=== PATIENT | male | born 1960 | race Caucasian/White ===

== ENCOUNTER 2017-09-25 12:41 | Emergency (ER) | payer BC ==
[~2017-09-25] VITALS: Ht 188 cm; Wt 110.0 kg
[~2017-09-25 12:41] MED LIST: AMLODIPINE10 MG PO; AMLODIPINE5 MG OR; AUGMENTIN500TAB PO; BACTRIM DS1 TAB PO; CIPROFLOXACN0.3 % OP; DOXYCYCL HYC100 MG OR; DOXYCYCL HYC100 MG PO; LEVETIRACETAM500 M1 PO; LOSARTAN/HCT1 TA1 PO; METHOCARBAM750 MG PO; METOPROLOL SUCC25 MG PO; MINOCYCLINE100 MG PO; MUPIROCIN2 % EX; NAPROSYN500 MG PO; PERCOCET 5/325M1 TAB PO; ROCEPHIN 1 GM1 GM IM; SMZ/TMP DS1 TAB PO
[2017-09-25 14:23] LABS: IMMATURE GRANULOCYTES 1.2 % (0.0-1.0); MEAN CORPUSCULAR HGB 29.1 pG CALC (26.0-32.0); MEAN CORPUSCULAR HGB CONC 35.1 g/L CALC (32.0-36.0); NEUT# 19.28 thou/uL (1.82-7.42); RED BLOOD COUNT 5.36 mill/uL (4.70-6.10); RED CELL DISTRI WIDTH 12.7 % (11.5-15.5)
[2017-09-25 14:25] LABS: HEMATOCRIT 44.5 % (39.0-50.0); HEMOGLOBIN 15.6 g/dl (14.0-18.0)
[2017-09-25 14:43] LABS: C-REACTIVE PROTEIN 4.2 mg/dL (0-0.9); CREATININE 1.8 mg/dL (0.7-1.3); POTASSIUM 3.7 mmol/l (3.5-5.1)
[2017-09-25] MEDS ORDERED: DOXYCYCL HYC100 MG PO (16:03)
[2017-09-25 16:09] VITALS: BP 149/86
== END 2017-09-25 16:09 | disposition home or self-care (01) | DRG 603 ==
LOC: ED 12:41 → ED-I 15:18 → ED 16:09
PROVIDERS: Family Medicine
DX: L03.115 Cellulitis of right lower limb (principal); I10 Essential (primary) hypertension

== ENCOUNTER 2017-09-26 10:33 | Inpatient (IN) | payer BC ==
[~2017-09-26] VITALS: Ht 188 cm; Wt 110.0 kg
--- NOTE | 2017-09-26 10:46 | NUR ---
PATIENT AMBULATED TO ROOM WITH STEADY GAIT AND PHYSICIAN NOTIFIED OF PATIENT STATUS
--- NOTE | 2017-09-26 11:15 | NUR ---
MD NOTIFIED OF HIGH BP, NO ORDERS RECEIVED AT THIS TIME. WILL CONTINUE TO MONITOR CLOSELY.
--- NOTE | 2017-09-26 11:35 | NUR ---
MD AWARE OF REPORTED REACTION TO VANCOMYCIN. PER DR FALLNO IN CONJUNCTION WITH PHARMACY, ORDERED TO GIVE BENEDRYL IV PRIOR TO ADMIN AND INFUSE OVER 3 HOURS INSTEAD OF NORMAL 2 HOURS. PT INFORMED OF PLAN OF CARE AND VERBALIZES UNDERSTANDING.
[2017-09-26 11:56] LABS: HEMATOCRIT 44.2 % (39.0-50.0); HEMOGLOBIN 15.3 g/dl (14.0-18.0); IMMATURE GRANULOCYTES 0.7 % (0.0-1.0); MEAN CELL VOLUME 83.2 fL CALC (80.0-100.0); MEAN CORPUSCULAR HGB 28.8 pG CALC (26.0-32.0); MEAN CORPUSCULAR HGB CONC 34.6 g/L CALC (32.0-36.0); NEUT# 10.14 thou/uL (1.82-7.42); RED BLOOD COUNT 5.31 mill/uL (4.70-6.10); RED CELL DISTRI WIDTH 12.9 % (11.5-15.5)
--- NOTE | 2017-09-26 12:16 | NUR ---
PT PREMEDICATED WITH BENEDRYL. IV VANCOMYCIN INITIATED. PT EDUCATED TO CALL OUT IF HE STARTS TO DEVELOP ANY SOB, ITCHING, OR CHEST PAIN. PT VERBALIZES UNDERSTANDING. CALL LIGHT IN REACH.
[2017-09-26 12:27] LABS: BILIRUBIN, TOTAL 1.1 mg/dL (0.0-1.4); CREATININE 1.5 mg/dL (0.7-1.3)
[2017-09-26 12:30] LABS: TOTAL PROTEIN 7.4 g/dL (6.3-8.2)
[2017-09-26 12:39] LABS: C-REACTIVE PROTEIN 18.8 mg/dL (0-0.9)
--- NOTE | 2017-09-26 12:43 | NUR ---
PT RESTING ON STRETCHER, DENIES COMPLAINTS AT THIS TIME.
--- NOTE | 2017-09-26 13:40 | NUR ---
PT RETURN FROM U/S IN STABLE CONDITION VIA STRETCER. IV VANCO RESTARTED. PT DENIES COMPLAINTS, CALL LIGHT IN REACH. PT ENCOURAGED TO CALL FOR ASSSIST.
--- NOTE | 2017-09-26 13:42 | NUR ---
MD NOTIFIED OF CONTINUED HIGH BLOOD PRESSURE, ORDERS RECEIVED FOR MED.
--- NOTE | 2017-09-26 14:00 | NUR ---
DR FALLON NOTIFIED OF COMPLETED RESULTS. WAITING ON ORDERS FOR ADMISSION/DISCHARGE.
--- NOTE | 2017-09-26 15:46 | NUR ---
REPORT PROVIDED TO VINNIE TAYLOR.
--- NOTE | 2017-09-26 15:47 | NUR ---
Transfer Information Transferred To: [facility] 262 Report Given to: HELENE TAYLOR Transported by: [facility] [employer] Other Transported with: X Nurse Transporter Patent [employer] X [employer] Marketing Manager
--- NOTE | 2017-09-26 15:52 | NUR ---
PT ARRIVED TO FLOOR VIA STRETCHER ACCOMPANIED BY HELENE MENDEZ;PT AMBULATED TO STANDING SCALE AND BEDSIDE WITH A STEADY GAIT;WT AND VS OBTAINED BY BLAISE LIVINGSTON;PT ORIENTED TO ROOM AND CALL LIGHT SYSTEM;PT REPORTS CELLULITIS TO RLE,PT CAME TO ER ON 09/25/17 AND WAS D/C WITH PO DOXY;PT RETURNED BACK TO ER TODAY BECAUSE CELLUILITS BECAME WORSE;PT REPORTS PAIN 6/10 ON THE PAIN SCALE BUT DENIES THE NEEDS FOR PAIN MEDICATION;PAIN SCALE AND REPORTING EDUCATED;RESPIRATIONS EVEN AND UNLABORED ON RA,CLEAR/DIMINISHED LUNG SOUNDS NOTED;ABDOMEN DISTENDED/SOFT ON PALPATION AND ACTIVE IN ALL 4 QUADRANTS,LAST BM 09/26/17;STRONG PEDAL PULSES;CELLULITIS NOTED TO RLE,WARM AND PAINFUL TO TOUCH;SITE PREVIOUSLY MARKED WITH SKIN SENSITIVE MARKED,PHOTOGRAPH OBTAINED;#22G TO LAC INFUSING VANCO WITH EASE,SITE APPEARS HEALTHY;TELE MONITOR IN PLACE;PT DENIES ANY ADDITONAL NEEDS AT THIS TIME AND IS ENCOURAGED TO CALL FOR ASSISTANCE IF NEEDED;CALL LIGHT IN REACH;WILL CONTINUE TO MONITOR
[2017-09-26 16:00] VITALS: BP 123/79
--- NOTE | 2017-09-26 19:00 | NUR ---
BEDSIDE REPORT RECEIVED FROM VINNIE CHAVEZ. PT SITTING UP IN BED WITH FAMILY AT BEDSIDE; ALERT AND ORIENTED. DENIES PAIN CURRENTLY. RESPIRATIONS EVEN AND UNLABORED ON ROOM AIR. PLAN OF CARE REVIEWED. PT ENCOURAGED TO VERBALIZE CONCERNS. STATES UNDERSTANDING. SAFETY MEASURES IN PLACE. CALL LIGHT WITHIN REACH.
[2017-09-26 19:45] VITALS: BP 132/81
--- NOTE | 2017-09-26 22:55 | NUR ---
RLE REMAINS REDDENED AND WARM TO TOUCH; DOES NOT LOOK WORSE COMPARED TO PHOTOS AND MARKING. PT ALSO HAS REDNESS TO RIGHT GROIN WHICH HE STATES FEELS WARM; PHOTO TAKEN AND MARKED AT THIS TIME. TEMPERATURE 100.3; WILL CONTINUE TO MONITOR. ABT INFUSED WITHOUT DIFFICUTLY. SPOKE WITH DAUGHTER, LORAINE, TWICE; SHE VERBALIZES CONCERNS ABOUT "SEVERE NEW ONSET MEMORY LOSS" OF WHICH THE PT DENIES. DAUGHTER WANTS TO BE PRESENT WHEN MD ROUNDS IN THE AM. WILL PASS ON TO DAY SHIFT. ULTRAM GIVEN FOR LOWER BACK PAIN WITH GOOD EFFECT. NO OTHER REQUESTS AT THIS TIME. SAFETY MEASURES IN PLACE. CALL LIGHT WITHIN REACH.
[2017-09-26 23:42] VITALS: BP 124/77
--- NOTE | 2017-09-27 01:15 | NUR ---
PT ASLEEP AT THIS TIME WITH NO SIGNS OF DISTRESS; AWAKENS TO VERBAL STIMULI. DENIES PAIN CURRENTLY. RESPIRATIONS EVEN AND UNLABORED ON ROOM AIR. ABT INFUSED WITHOUT DIFFICULTY; IV SITE APPEARS HEALTHY. NO REQUESTS OR CONCERNS AT THIS TIME. SAFETY MEASURES IN PLACE. CALL LIGHT WITHIN REACH.
--- NOTE | 2017-09-27 03:57 | NUR ---
PT ASLEEP AT THIS TIME WITH NO SIGNS OF DISTRESS. RESPIRATIONS EVEN AND UNLABORED ON ROOM AIR. NO ACUTE CHANGES IN CONDITION THROUGHOUT THE NIGHT. SAFETY MEASURES IN PLACE. CALL LIGHT WITHIN REACH.
[2017-09-27 04:12] VITALS: BP 124/78
[2017-09-27 05:58] LABS: HEMATOCRIT 39.8 % (39.0-50.0); HEMOGLOBIN 13.5 g/dl (14.0-18.0); IMMATURE GRANULOCYTES 0.6 % (0.0-1.0); MEAN CELL VOLUME 85.4 fL CALC (80.0-100.0); MEAN CORPUSCULAR HGB CONC 33.9 g/L CALC (32.0-36.0); NEUT# 5.35 thou/uL (1.82-7.42); RED BLOOD COUNT 4.66 mill/uL (4.70-6.10); RED CELL DISTRI WIDTH 13.2 % (11.5-15.5)
[2017-09-27 06:14] LABS: ANION GAP 12 (6-22 (CALC)); BUN 20 mg/dL (9-20); BUN/CREATININE RATIO 14 (12-20 (CALC)); CALCULATED LDLCHOLESTEROL 91 mg/dL (62-129 (CALC)); CARBON DIOXIDE 25 mmol/l (22-30); CHLORIDE 105 mmol/l (95-108); CHOLESTEROL HDL RATIO 3.7 (<4.4 (CALC)); CREATININE 1.4 mg/dL (0.7-1.3); GFR 52 ML/MIN (>=60 (CALC)); GFR FOR AFR.AMER. > 60 ML/MIN (>=60 (CALC)); HDL CHOLESTEROL 46 mg/dL (>=40); POTASSIUM 4.4 mmol/l (3.5-5.1); SODIUM 137 mmol/l (137-146); TOTAL CHOLESTEROL 171 mg/dl (0-199); TOTAL TRIGLYCERIDES 172 mg/dl (30-149); VLDL CHOLESTROL 34 mg/dl (8-62 (CALC))
--- NOTE | 2017-09-27 07:39 | NUR ---
S: AGUSTIN SUN is a 57 M who presents with CELLULITIS OF RIGHT LEG. He has a history of CELLULITIS AND HYPERTENSION. All medications in patient's chart were reviewed. O: VS: BP 124/78, P 74, RR 20,T 99.6 W 109 kg, HT 74 in, Scr= 1.4 ,CrCl= 67 ml/min (IBW) PATINETS KIDNEY FUNCTION IS IMPROVING, SCR WAS 1.8 ON 09/25 WE WILL MONITOR AND ADJUST DOSE NEEDED. A: Blood culture <is pending> which is sensitive to <N/A>. Urine culture <is pending> which is sensitive to <N/A>. P: Patient is on VANCOMYCIN 1000MG IV Q12H AND ZOSYN 2.25 Q6H . Vancomycin ordered for pharmacy to dose. Start Vancomycin 1000 MG IV Q12H. Vancomycin trough is drawn before the 4th dose on 09/28/17 @1930. Vancomycin goal trough is between <10-15 mcg/ml>. Pharmacy will follow and or advise on antibiotics use as needed.
[2017-09-27 07:57] VITALS: BP 145/92
--- NOTE | 2017-09-27 07:57 | NUR ---
Pt sitting up in chair eating breakfast. Alert and oriented. Assessment completed. No resp. distress noted. No complaints voiced. Saline lock in left AC free from redness or edema. Right lower leg noted with redness, leg marked with marker, no further spreading noted on left. Will continue to monitor. Call light within reach.
--- NOTE | 2017-09-27 09:00 | NUR ---
Daughter here to visit patient. Has many questions regarding his condition and mentation. She is concerned he is forgetting, this change has only been since this illness. Instructed daughter we will keep an eye on his orientation. Could possible be from this disease process. Dr. Yoon spoke with patient and daughter regarding plan of care.
--- NOTE | 2017-09-27 12:00 | NUR ---
PT CONTINUES TO REST QUIETLY IN BED. NO RESP. DISTRESS NOTED. NO CHANGE IN ASSESSMENT. FAMILY INTO VISIT. NO COMPLAINTS OFFERED. WILL CONTINUE TO MONITOR. CALL LIGHT WITHIN REACH.
[2017-09-27 12:02] VITALS: BP 142/86
[2017-09-27 12:47] LABS: URINE BILIRUBIN - DIPSTICK NEGATIVE (NEGATIVE); URINE BLOOD DIPSTICK NEGATIVE (NEGATIVE); URINE COLOR YELLOW; URINE GLUCOSE - DIPSTICK NEGATIVE (NEGATIVE); URINE KETONE NEGATIVE (NEGATIVE); URINE LEUK ESTERASE NEGATIVE (NEGATIVE); URINE NITRITE - DIPSTICK NEGATIVE (Negative); URINE PH 5.5 (4.5-8.0); URINE PROTEIN - DIPSTICK TRACE mg/dL (NEG-TRACE); URINE SPECIFIC GRAVITY >=1.030
[2017-09-27 12:50] LABS: URINE CLARITY CLEAR
[2017-09-27 15:55] VITALS: BP 142/89
--- NOTE | 2017-09-27 16:00 | NUR ---
PT CONTINUES TO REST QUIETLY IN BED. NO RESP. DISTRESS NOTED. NO COMPLAINTS VOICED. NO CHANGE IN ASSESSMENT. WILL CONTINUE TO MONITOR. CALL LIGHT WITHIN REACH.
--- NOTE | 2017-09-27 20:00 | NUR ---
BEDSIDE REPORT RECEIVED FROM HELENE OTERO. PT SITTING UP IN CHAIR; ALERT AND OREINTED. DENIES PAIN CURRENTLY, BUT STATES THAT HE WANTS SOMETHING AT HS FOR MILD LOWER BACK PAIN. RESPIRATIONS EVEN AND UNLABORED ON ROOM AIR. TELE ON. PLAN OF CARE REVIEWED. PT ENCOURAGED TO VERBALIZE CONCERNS. STATES UNDERSTANDING. SAFETY MEASURES IN PLACE. CALL LIGHT WITHIN REACH.
[2017-09-27 20:15] VITALS: BP 181/109
[2017-09-27 21:08] VITALS: BP 157/96
--- NOTE | 2017-09-28 00:21 | NUR ---
PT INDEPDENDENT IN ROOM. AT HS, BLOOD PRESSURE WAS ELEVATED, BUT DECREASED ON ITS OWN. ULTRAM GIVEN AND PT DENIES ANXIETY. REDNESS TO RLE APPEARS IMPROVED. VANCOMYCIN INFUSED WITHOUT DIFFICULTY AND NO ADVERSE REACTIONS NOTED. IV SITE APPEARS HEALTHY. PT HAS NO REQUESTS OR CONCERNS AT THIS TIME. SAFTETY MEASURES IN PLACE. CALL LIGHT WITHIN REACH.
[2017-09-28 00:35] VITALS: BP 124/78
[2017-09-28 04:25] VITALS: BP 139/89
--- NOTE | 2017-09-28 05:52 | NUR ---
PT ASLEEP AT THIS TIME WITH NO SIGNS OF DISTRESS. RESPIRATIONS EVEN AND UNLABORED ON ROOM AIR. USES CALL LIGHT PRN FOR ASSISTANCE. NO ACUTE CHANGES IN CONDITION THROUGHOUT THE NIGHT. SAFETY MEASURES IN PLACE. CALL LIGHT WITHIN REACH.
[2017-09-28 06:10] LABS: HEMATOCRIT 39.1 % (39.0-50.0); HEMOGLOBIN 13.1 g/dl (14.0-18.0); IMMATURE GRANULOCYTES 1.2 % (0.0-1.0); MEAN CELL VOLUME 85.9 fL CALC (80.0-100.0); MEAN CORPUSCULAR HGB 28.8 pG CALC (26.0-32.0); MEAN CORPUSCULAR HGB CONC 33.5 g/L CALC (32.0-36.0); NEUT# 2.63 thou/uL (1.82-7.42); RED BLOOD COUNT 4.55 mill/uL (4.70-6.10)
[2017-09-28 06:22] LABS: ANION GAP 11 (6-22 (CALC)); BUN 18 mg/dL (9-20); BUN/CREATININE RATIO 15 (12-20 (CALC)); CARBON DIOXIDE 25 mmol/l (22-30); CHLORIDE 106 mmol/l (95-108); CREATININE 1.3 mg/dL (0.7-1.3); GFR 57 ML/MIN (>=60 (CALC)); GFR FOR AFR.AMER. > 60 ML/MIN (>=60 (CALC)); POTASSIUM 4.4 mmol/l (3.5-5.1); SODIUM 138 mmol/l (137-146)
--- NOTE | 2017-09-28 09:05 | NUR ---
PT SITTING UP IN CHAIR. NO RESP. DISTRESS NOTED. ASSESSMENT COMPLETED. SALINE LOCK INTACT IN LEFT AC. REDNESS DECREASED ON RIGHT LOWER LEG NOTED. PT DENIES PAIN. WILL CONTINUE TO MONITOR. CALL LIGHT WITHIN REACH.
[2017-09-28 11:25] VITALS: BP 175/103
--- NOTE | 2017-09-28 12:00 | NUR ---
PT RESTING QUIETLY IN BED. NO RESP. DISTRESS NOTED. NO COMPLAINTS VOICED. DAUGHTER HAS SPENT MOST OF THE MORNING WITH HIM. NO CHANGE ASSSESSMENT. WILL CONTINUE TO MONITOR. CALL LIGHT WITHIN REACH.
[2017-09-28 16:00] VITALS: BP 148/96
--- NOTE | 2017-09-28 16:00 | NUR ---
PT SITTING UP IN CHAIR AT BEDSIDE. NO RESP. DISTRESS NOTED. NO COMPLAINTS VOICED AT THIS TIME. NO CHANGE IN ASSESSMENT. WILL CONTINUE TO MONITOR. CALL LIGHT WITHIN REACH.
--- NOTE | 2017-09-28 19:20 | NUR ---
PATIENT RESTING IN BED WITH FAMILY AT THE BEDSIDE. RESP EVEN AND UNLABORED. NO S/S OF DISTRESS NOTED. PLAN OF CARE DISCUSSED, FALL PRECAUTIONS IN PLACE, AND INFORMED PATIENT TO CALL WITH ANY QUESTION OR CONCERNS.
[2017-09-28 19:31] VITALS: BP 191/118
--- NOTE | 2017-09-28 20:11 | NUR ---
BP 191/118 AND HR 65. APRESOLINE 10MG GIVEN.
[2017-09-28 20:50] VITALS: BP 168/102
[2017-09-29] VITALS (8 sets, daily range): BP systolic 118–190; BP diastolic 77–118
--- NOTE | 2017-09-29 00:19 | NUR ---
PATIENT RESTING WITH EYES CLOSED. RESP EVEN AND UNLABORED. NO S/S OF DISTRESS NOTED. WILL CONTIUNE TO COLT.
--- NOTE | 2017-09-29 06:39 | NUR ---
PATIENT HAS C/O OF A HEACHE THIS MORNING, WILL MEDICATED PER MD ORDERS FOR PAIN. RESP EVEN AND UNLABORED. NO S/S OF DISTRESS NOTED.
--- NOTE | 2017-09-29 08:24 | NUR ---
PT SITTING UP IN RECLINER CHAIR. IV ABT INFUSING AT THIS TIME. B/P 190/118. POC DISCUSSED WITH PT. PT VERBALIZES UNDERSTANDING. ASSESSMENT COMPLETED. TELE MONITOR IN PLACE. WILL CONTINUE TO MONITOR. CALL LIGHT IN REACH.
--- NOTE | 2017-09-29 13:30 | NUR ---
B/P AT 1234 168/101. HYDRALIZINE IV GIVEN AND B/P 138/90 AT THIS TIME. PT C/O SAGE AND WAS PREVIOSULY MEDICATED FOR. PT STATES SAGE HAS IMPROVED. WILL COTINUE TO MONITOR. CALL LIGHT IN REACH.
--- NOTE | 2017-09-29 14:28 | NUR ---
S: AGUSTIN SUN is a 57 M who presents with <CELLULITIS>. He has a history of <CELLULITIS AND HTN>. All medications in patient's chart were reviewed. O: VS: BP <168/101>, P<68>, RR<22>,T<96.7> W <110 kg>, HT<110 KG>, Scr=<1.3>,CrCl= <67 ml/min> A: Blood culture <show NO GROWTH AFTER 48 HOURS> which is sensitive to <N/A>. P: Patient is on <ZOSYN AND VANCOMCIN>. Vancomycin ordered for pharmacy to dose. CONTINUE Vancomycin <1000 MG> IV Q<12>H. NEXT Vancomycin trough is drawn before the dose on <09/15/16 @1930>. Vancomycin goal trough is between <10-15 mcg/ml>. Pharmacy will follow and or advise on antibiotics use as needed.
--- NOTE | 2017-09-29 17:00 | NUR ---
PT REQUESTING SODA TO HELP WITH SAGE. PT STATES HE HAS HAD NO CAFFEINE SINCE ADMISSION. SODA GIVEN PER PT REQUEST. VSS. WILL CONTINUE TO MONITOR. CALL LIGHT IN REACH.
--- NOTE | 2017-09-29 20:00 | NUR ---
BEDSIDE REPORT RECEIVED FROM VINNIE GRIFFIN. PT SITTING UP IN CHAIR WATCHING TV; ALERT AND ORIENTED. C/O HEADAHCE 09/24. RESPIRATIONS EVEN AND UNLABORED ON ROOM AIR. PLAN OF CARE DISCUSSED. PT ENCOURAGED TO VERBALIZE CONCERNS. STATES UNDERSTANDING. SAFETY MEASURES IN PLACE. CALL LIGHT WITHIN REACH.
--- NOTE | 2017-09-29 21:49 | NUR ---
DAUGHTER IN TO SEE PT. GIVEN COPIES OF MEDICATIONS AND VS SINCE ADMISSION; ALL QUESTIONS ANSWERED TO SATISFACTION. RESTORIL AND LORTAB GIVEN AT HS FOR HEADAHCE WITH GOOD EFFECT. NO OTHER REQUESTS OR CONCERNS AT THIS TIME.
--- NOTE | 2017-09-30 00:15 | NUR ---
DAUGHTER CALLED FOR AN UPDATE AND TO KNOW WHAT MIDNIGHT BLOOD PRESSURE WAS. PT ASLEEP AT THIS TIME WITH NO SIGNS OF DISTRESS. AWAKENED TO VERBAL STIMULI AND C/O HEADACHE UPON AWAKENING; LORTAB GIVEN WITH GOOD EFFECT. ZOSYN INFUSED WITHOUT DIFFICULTY; IV SITE APPEARS SLIGHTLY LEAKY; WILL ATTEMPT NEW IV SITE. PT INDEPENDENT IN ROOM; USES CALL LIGHT PRN FOR ASSITANCE. SAFETY MEASURES IN PLACE. CALL LIGHT WITHIN REACH.
[2017-09-30 00:25] VITALS: BP 147/90
--- NOTE | 2017-09-30 04:00 | NUR ---
BLOOD PRESSURE IS STABLE. PT STATES THAT HE HAS SLEPT WELL THROUGHOUT THE NIGHT AND HIS HEADACHE HAS LESSENED; HE BELIEVES BECAUSE HE RECEIVED CAFFINATED BEVERAGES LAST EVENING HE IS USED TO DRINKING 4 CUPS OF COFFEE EVERY MORNING. DIET ADJUSTED TO INCLUDE A CAFFINATED BEVERAGE WITH EACH MEAL. NO ACUTE CHANGES IN CONDITION THIS SHIFT. SAFETY MEASURES IN PLACE. CALL LIGHT WITHIN REACH.
[2017-09-30 04:28] VITALS: BP 141/88
--- NOTE | 2017-09-30 07:15 | NUR ---
REPORT RECEIVED FROM SHARRN;PT OOB RESTING IN RECLINER WITH BLAISE SULTANA AT BEDSIDE PREPARING HIM FOR A SHOWER;INTRODUCED SELF TO PT AND POC DISCUSSED;PT DENIES ANY CURRENT PAIN OR NEEDS;RESPIRATIONS EVEN AND UNLABORED ON RA;TELE MONITOR IN PLACE;ENCOURAGED PT TO CALL FOR ASSISTANCE IF NEEDED;CALL LIGHT IN REACH;WILL CONTINUE TO MONITOR
--- NOTE | 2017-09-30 08:20 | NUR ---
PT RESTING IN RECLINER WATCHING TV;PT DENIES ANY CURRENT PAIN OR NEEDS STATING "I ACTUALLY FEEL BETTER,LIKE A DIFFERENT PERSON TODAY";VS OBTAINED AND ASSESSMENT COMPLETED;RESPIRATIONS EVEN AND UNLABORED ON RA,CLEAR/DIMINISHED LUNG SOUNDS;ABDOMEN SOFT ON PALPATION AND ACTIVE IN ALL 4 QUADRANTS;REDDENING NOTED TO RLE,WARM TO TOUCH;PHOTOGRAPHS IN CHART;#20G TO RIGHT FOREARM FLUSHED AND PATENT,SITE APPEARS HEALTHY;TELE MONITOR IN PLACE;BP 177/105 HR 90,PRADIP RICHARDSON,ANRP NOTIFIED;FRESH COFFEE PROVIDED PER REQUEST;PT DENIES ANY ADDITIONAL NEEDS;ENCOURAGED TO CALL FOR ASSISTANCE IF NEEDED;CALL LIGHT IN REACH;WILL CONTINUE TO MONITOR
[2017-09-30 08:23] VITALS: BP 177/105
--- NOTE | 2017-09-30 09:40 | NUR ---
PT OOB RESTING IN RECLINER WITH DAUGHTER AT BEDSIDE;MEDICATED PT WITH NORVASC 2.5MG PO FOR BP OF 177/105 HR 90,WILL MONITOR FOR EFFECTIVENESS
[2017-09-30 11:05] VITALS: BP 184/103
--- NOTE | 2017-09-30 11:05 | NUR ---
MANUAL BP 184/103 HR 89,PT TO BE MEDICATED WITH PRN HYDRALAZINE 10MG IVP BY HELENE RICH,WILL MONITOR FOR EFFECTIVENESS
--- NOTE | 2017-09-30 12:05 | NUR ---
PT OOB RESTING IN RECLINER;PT AND WRITTER DISCUSSED POC,PT VERBALIZES UNDERSTANDING;TELE MONITOR IN PLACE;RESPIRATIONS EVEN AND UNLABORED ON RA;BP RE-CHECK 169/94 HR 73;IV SITE PATENT;ENCOURAGED PT TO CALL FOR ASSISTANCE IF NEEDED;CALL LIGHT IN REACH;WILL CONTINUE TO MONITOR
[2017-09-30 12:07] VITALS: BP 169/94
--- NOTE | 2017-09-30 12:29 | NUR ---
UPDATED DAUGHTER (LORAINE) ON POC
[2017-09-30] MEDS ORDERED: AUGMENTIN875TAB PO (12:53)
[2017-09-30] MEDS ORDERED: AMLODIPINE BESYL5 MG PO (12:53)
[2017-09-30] MEDS ORDERED: TRAMADOL HCL50 MG PO (12:53)
[2017-09-30] MEDS ORDERED: BACTRIM DS1 TAB PO (12:53)
[2017-09-30] MEDS ORDERED: PREDNISONE10 MG PO (12:55)
--- NOTE | 2017-09-30 14:00 | NUR ---
ALL DISCHARGE INFORMATION DISCUSSED AT THIS TIME,PRESCRIPTIONS PROVIDED AND DISCUSSED IN DETAIL;IV SITE REMOVED WITH CATHETER INTACT;PT REFUSES WHEELCHAIR FOR DISCHARGE;AWAITING TRANSPORTATION HOME
--- NOTE | 2017-09-30 14:05 | NUR ---
PT REPORTS HEADACHE PAIN RATING 6/10 ON THE PAIN SCALE AND REQUESTS PAIN MEDICATION;PT MEDICATED WITH PRN TYLENOL 650MG PO,WILL CONTINUE TO MONITOR
--- NOTE | 2017-09-30 14:30 | NUR ---
Discharge instructions given. Patient verbalizes understanding of same. Discharged in stable condition via Ambulatory to Home with family. All belongings sent with pt.
== END 2017-09-30 14:30 | disposition home health service (06) | DRG 603 ==
LOC: ED 10:33 → ED-I 14:49 → ED 15:18 → MS2 15:19
PROVIDERS: Emergency Medicine; Nurse Practitioner Family; ADMIT Internal Medicine; ATTEND Internal Medicine
DX: L03.115 Cellulitis of right lower limb (principal); L03.314 Cellulitis of groin; N17.9 Acute kidney failure, unspecified; I16.0 Hypertensive urgency; I12.9 Hypertensive chronic kidney disease with stage 1 through stage 4 chronic kidney disease, or unspecified chronic kidney disease; N18.3 Chronic kidney disease, stage 3 (moderate); D64.9 Anemia, unspecified; I77.6 Arteritis, unspecified; G89.29 Other chronic pain; M54.9 Dorsalgia, unspecified; Z91.14 Patient's other noncompliance with medication regimen
CPT/HCPCS: J1650